=== PATIENT | male | born 1990 | race Caucasian/White ===

== ENCOUNTER 2018-03-13 12:19 | Emergency (ER) | payer MEDICAID, OTHER ==
[2018-03-13 13:02] VITALS: BP 137/77
--- NOTE | 2018-03-13 13:23 | UC ---
Skin Complaint HPI - HPI Summary HPI Summary: Left axillary tender bumbs for two days. One time he had a prior skin infection on the right arm and it was not mrsa. He has never had axillary abcess. No fever or chills. - History of Current Complaint Chief Complaint: UCSkin Time Seen by Provider: 03/13/18 13:07 Stated Complaint: LT SIDE LUMPS UNDERARM AREA Hx Obtained From: Patient Onset/Duration: Gradual Onset, Lasting Days Skin Exposure Onset/Duration: Days Ago Timing: Constant Onset Severity: Mild Current Severity: Moderate Pain Intensity: 0 Location: Discrete Character: Redness, Raised, Painful Aggravating Factor(s): Touch Alleviating Factor(s): Nothing Associated Signs & Symptoms: Positive: Tenderness. Negative: Fever, Chills, Rash, Drainage, Red Streaks, Joint Swelling - Allergy/Home Medications Allergies/Adverse Reactions: Allergies Allergy/AdvReac Type Severity Reaction Status Date / [facility] Sw[facility] Verified 07/03/17 19:55 Review of Systems Skin: Other All Other Systems Reviewed And Are Negative: Yes PMH/Surg Hx/FS Hx/Imm Hx Previously Healthy: No - Hepatitis C. No medications currently. - Surgical History Surgical History: None - Family History Known Family History: Negative: Respiratory Disease - Social History Occupation: Employed Full-time Alcohol Use: Weekly Substance Use Type: Marijuana Substance Use Comment - Amount & Last Used: occasionally Smoking Status (MU): Heavy Every Day Tobacco Smoker Type: Cigarettes Amount Used/How Often: 1 PPD Length of Time of Smoking/Using Tobacco: since age 19 Have You Smoked in the Last Year: Yes - Immunization History Most Recent Influenza Vaccination: NONE 2016 Physical Exam Triage Information Reviewed: Yes Appearance: Well-Appearing, No Pain Distress, Well-Nourished Vital Signs: Initial Vital Signs Temp 98.7 F 03/13/18 12:56 Pulse 84 03/13/18 12:56 Resp 14 03/13/18 12:56 BP 137/77 03/13/18 12:56 Pulse Ox 100 03/13/18 12:56 Vital Signs Reviewed: Yes Eyes: Positive: Conjunctiva Clear ENT: Positive: Normal ENT inspection Neck: Negative: Nuchal Rigidity Respiratory: Positive: No accessory muscle use Cardiovascular: Positive: Brisk Capillary Refill Abdomen Description: Negative: Distended Musculoskeletal Exam: Normal Musculoskeletal: Negative: Strength Intact, ROM Intact, No Edema Neurological: Positive: Alert, Muscle Tone Normal. Negative: Fatigued Psychological: Positive: Age Appropriate Behavior Skin: Positive: Other - Left axilla small pink 1cm large non fluctuant non pointing tender mobile spots. No streaking. Course/Dx - Course Course Of Treatment: He agrees to return for any worsening. - Diagnoses Provider Diagnoses: axillary abscess. Discharge - Sign-Out/Discharge Documenting (check all that apply): Patient Departure - Discharge Plan Condition: Good Disposition: HOME Prescriptions: Sulfamethox/Trimethoprim DS* [Bactrim DS 800/160 TAB*] 1 tab PO BID #[id number] tab Patient Education Materials: Abscess (ED) Referrals: Hui Rojas MD [Primary Care Provider] - - Billing Disposition and Condition Condition: GOOD Disposition: Home
== END 2018-03-13 13:21 | disposition home or self-care (01) ==
LOC: UCCORT 12:19
DX: L02.412 Cutaneous abscess of left axilla (principal); Z88.1 Allergy status to other antibiotic agents; F17.210 Nicotine dependence, cigarettes, uncomplicated
CPT/HCPCS: 99212; G0463